=== PATIENT | female | born 2005 | race Hispanic/Latino ===

== ENCOUNTER 2024-09-06 02:41 | Emergency (ER) | payer SELFPAY ==
[2024-09-06 03:36] LABS: Absolute Eosinophils 0.1 K/uL (0-0.5); Absolute Lymphocytes (CBC) 2.8 K/uL (0.7-4.9); Absolute Monocytes 0.8 K/uL (0.1-1.3); Absolute Neutrophil 10.7 K/uL (1.8-8.0); Basophils % 0.2 % (0-1.3); Eosinophils % 0.8 % (0-4.4); Hematocrit 39.6 % (36.0-45.0); Hemoglobin 13.4 g/dL (12.0-15.0); Lymphocytes % 19.2 % (15.3-44.8); MCH 32.1 pg (27.0-35.0); MCHC 33.8 g/dL (32.0-36.0); MCV 94.8 fL (80-100); MPV 9.1 fL (7.6-11.3); Monocytes % 5.8 % (3.3-12.3); Platelets 241 thou/uL (152-406); RBC Red Blood Cell Count 4.17 M/uL (3.86-4.86); Red Cell Distribution Width 13.6 % (12.1-15.2)
[2024-09-06 03:55] LABS: Specific Gravity 1.017 (1.005-1.030); Sqamous Epithelial <5 /HPF (None Seen); Urine Bacteria 20-50 /HPF (<20); Urine Bilirubin NEGATIVE (Negative); Urine Blood 1+ (Negative); Urine Clarity Extremely Turbid (Clear); Urine Color Light-Yellow (Yellow); Urine Crystals Unidentified Few /HPF (None Seen); Urine Culture Reflex Order REFLEXED; Urine Glucose NEGATIVE (Negative); Urine Ketones NEGATIVE (Negative); Urine Microscopic Reflex YN ORDER UMIC; Urine Mucus Slight /HPF (None Seen); Urine Nitrite NEGATIVE (Negative); Urine Protein TRACE (Negative); Urine Urobilinogen Normal (Normal); Urine WBC >50 /HPF (<5); Urine WBC Clump Rare /HPF (None Seen); Urine pH 6.5 (5.0-7.0)
[2024-09-06 04:00] LABS: Anion Gap 10.6 mEq/L (5.0-15.0); Potassium 3.6 mEq/L (3.5-5.1)
--- NOTE | 2024-09-06 04:46 | RAD REPORT ---
EXAM DESCRIPTION: Transvaginal OB CLINICAL HISTORY: 19 years Female, bleeding COMPARISON: None. TECHNIQUE: Transvaginal images of the pelvis obtained FINDINGS: Uterus: Anteverted, measuring 8.7 x 5.3 x 6.6 cm. No myometrial mass. Gestational sac/Yolk sac/ pole: Single live intrauterine is identified with gestationa l sac containing a pole and small yolk sac. [place]-rump length of 0.7 cm, compatible with estimated gestational age of 6 weeks and 4 days. heart motion: 129 bpm Right ovary: Measures 3.1 x 2.7 x 2.8 cm. No suspicious sonographic abnormality. Left ovary: Not visualized. Adnexa: No additional abnormality. Free fluid: Trace free fluid. IMPRESSION: Single live intrauterine with estimated gestational age of 6 weeks and 4 days. Electronically signed by: Gwen Doll MD 09/06/2024 04:43 AM SAMPLE SEWER Due to temporary technical issues with the PACS/[employer] scribe reporting system, reports are being sign ed by the in-house radiologist without review as a courtesy to ensure prompt reporting the interpreting rad iologist is fully responsible for the content of the report. Transcribed Date/Time: 09/06/2024 4:46 AM
--- NOTE | 2024-09-06 04:50 | EDPHYS ---
Physician Documentation [facility] Name: Glenda Man Age: 19 yrs Sex: Female : 2005 Arrival Date: 09/06/2024 Time: 02:41 Bed 5 Private MD: ED Physician Sridhar Delatorre HPI: 09/06 03:07 This 19 yrs old Female presents to ER via Ambulatory with complaints of rt Abdominal Cramping, Vaginal Bleeding, 3 to 4 weeks preg. 03:07 Patient is a G1, P0 unsure how far along she is who presents to the ED with spotting rt after urinating today. Reports mild abdominal cramping and nausea but denies other acute complaints, symptoms are mild severity, no other aggravating alleviating factors.. 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 - Infectious Disease History:: Denies. - Social history:: Smoking status: Patient denies any tobacco usage or history of. - Family history:: not pertinent. ROS: 03:07 Constitutional: Negative for fever, chills, and weight loss, Cardiovascular: Negative rt for chest pain, palpitations, and edema, Respiratory: Negative for shortness of breath, cough, wheezing, and pleuritic chest pain, Abdomen/GI: Negative for abdominal pain, nausea, vomiting, diarrhea, and constipation, MS/Extremity: Negative for injury and deformity, Skin: Negative for injury, rash, and discoloration, Neuro: Negative for headache, weakness, numbness, tingling, and seizure, 03:07 : Positive for vaginal bleeding, Negative for urinary symptoms, Exam: 03:07 Constitutional: This is a well developed, well nourished patient who is awake, alert, rt and in no acute distress. Head/Face: Normocephalic, atraumatic. Chest/axilla: Normal chest wall appearance and motion. Nontender with no deformity. No lesions are appreciated. Cardiovascular: Regular rate and rhythm with a normal S1 and S2. No gallops, murmurs, or rubs. Normal PMI, no JVD. No pulse deficits. Respiratory: Lungs have equal breath sounds bilaterally, clear to auscultation and percussion. No rales, rhonchi or wheezes noted. No increased work of breathing, no retractions or nasal flaring. Abdomen/GI: Soft, non-tender, with normal bowel sounds. No distension or tympany. No guarding or rebound. No evidence of tenderness throughout. Skin: Warm, dry with normal turgor. Normal color with no rashes, no lesions, and no evidence of cellulitis. MS/ Extremity: Pulses equal, no cyanosis. Neurovascular intact. Full, normal range of motion. Neuro: Awake and alert, GCS 15, oriented to person, place, time, and situation. Cranial nerves II-XII grossly intact. Motor strength 5/5 in all extremities. Sensory grossly intact. Cerebellar exam normal. Normal gait. Vital Signs: 02:57 BP 134 / 82; Pulse 95; Resp 18; Temp 98; Pulse Ox 100% ; Weight 84.37 kg; Height 5 ft. vc1 2 in. ; Pain 0/10; 04:09 BP 120 / 54; Pulse 75; Resp 18; Pulse Ox 100% ; cp4 04:57 BP 116 / 85; Pulse 74; Resp 18; Pulse Ox 100% ; cp4 02:57 Body Mass Index 34.02 (84.37 kg, 157.48 cm) vc1 02:57 Pain Scale: Adult vc1 MDM: 02:57 Medical Screening Exam initiated rt 04:50 Differential diagnosis: Threatened AB, missed , ectopic . rt 04:51 Data reviewed: vital signs, nurses notes, lab test result(s), radiologic studies. rt Counseling: I had a detailed discussion with the patient and/or guardian regarding the historical points, exam findings, and any diagnostic results supporting the discharge/admit diagnosis, lab results, radiology results, the need for outpatient follow up, to return to the emergency department if symptoms worsen or persist or if there are any questions or concerns that arise at home. 09/06 03:02 Order name: Abo/rh Typing; Complete Time: 04:13 rt 09/06 03:02 Order name: Basic Metabolic Panel; Complete Time: 04:13 rt 09/06 03:02 Order name: CBC with Diff; Complete Time: 04:13 rt 09/06 03:02 Order name: Quantitative Hcg; Complete Time: 04:13 rt 09/06 03:02 Order name: Urinalysis w/ reflexes; Complete Time: 04:13 rt 09/06 03:58 Order name: Urine Culture EDMS 09/06 03:02 Order name: US Transvaginal Ob rt 09/06 03:02 Order name: IV Saline Lock; Complete Time: 03:14 rt 09/06 03:02 Order name: Labs collected and sent; Complete Time: 03:14 rt 09/06 03:02 Order name: NPO; Complete Time: 03:14 rt Administered Medications: No medications were administered Disposition Summary: 09/06/24 04:49 Discharge Ordered Notes: Location: Home rt Problem: new rt Symptoms: have improved rt Condition: Stable rt Diagnosis - Threatened rt - UTI/ Urinary tract infection, site not specified rt Followup: rt - With: Private Physician - When: 2 - 3 days - Reason: Discharge Instructions: - Discharge Summary Sheet rt - Urinary Tract Infection, Adult rt - Threatened Miscarriage, [id number] rt Forms: - Medication Reconciliation Form rt - Antibiotic Education rt - Prescription Opioid Use rt - Patient Portal Instructions rt - Leadership Thank You Letter rt Prescriptions: - cefpodoxime 200 mg Oral tablet - take 1 tablet ORAL route every 12 hours with food; 14 tablet; Refills: 0, rt Product Selection Permitted Signatures: Dispatcher [facility] EDEllen Rdz RN RN vc1 Sridhar Delatorre MD MD rt Corrections: (The following items were deleted from the chart) 03:03 03:02 ABO/RH TYPING+BB.LAB.BRZ ordered. EDMS EDMS 03:03 03:03 BASIC METABOLIC PANEL+C.LAB.BRZ ordered. EDMS EDMS 03:03 03:03 CBC+H.LAB.BRZ ordered. EDMS EDMS 03:03 03:03 QUANTITATIVE HCG+C.LAB.BRZ ordered. EDMS EDMS 03:03 03:03 Urinalysis+U.LAB.BRZ ordered. EDMS EDMS 03:03 03:03 Transvaginal Ob+US.RAD.BRZ ordered. EDMS EDMS
--- NOTE | 2024-09-06 04:50 | ER ---
Nurse's Notes [facility] Name: Glenda Man Age: 19 yrs Sex: Female : 2005 Arrival Date: 09/06/2024 Time: 02:41 Bed 5 Private MD: Diagnosis: Threatened ;UTI/ Urinary tract infection, site not specified Presentation: 09/06 02:57 Chief complaint: Patient states: just found out a couple of weeks ago, had vc1 some light bleeding while wiping tonight. Coronavirus screen: Client denies travel out of the [place] in the last 14 days. At this time, the client does not indicate any symptoms associated with coronavirus-19. Ebola Screen: Patient negative for fever greater than or equal to 101.5 degrees Fahrenheit, and additional compatible Ebola Virus Disease symptoms Patient denies exposure to infectious person. Patient denies travel to an Ebola-affected area in the 21 days before illness onset. No symptoms or risks identified at this time. Initial Sepsis Screen: Does the patient meet any 2 criteria? No. Patient's initial sepsis screen is negative. Does the patient have a suspected source of infection? No. Patient's initial sepsis screen is negative. Risk Assessment: Do you want to hurt yourself or someone else? Patient reports no desire to harm self or others. Onset of symptoms was September 06, 2024. Care prior to arrival: None. Activity prior to arrival: None. 02:57 Method Of Arrival: Ambulatory vc1 02:57 Acuity: VEE 4 vc1 Triage Assessment: 03:03 General: Appears in no apparent distress. comfortable, well groomed, well developed, vc1 well nourished, Behavior is calm, cooperative, appropriate for age. Pain: Denies pain. EENT: No deficits noted. No signs and/or symptoms were reported regarding the EENT system. Neuro: Level of Consciousness is awake, alert, obeys commands, Oriented to person, place, time, situation, Appropriate for age. Cardiovascular: Capillary refill < 3 seconds Patient's skin is warm and dry. Respiratory: Airway is patent Respiratory effort is even, unlabored, Respiratory pattern is regular, symmetrical. GI: Abdomen is round non-distended. : Reports vaginal bleeding that is spotty. Derm: Skin is intact, is healthy with good turgor, Skin is dry, Skin is normal. Musculoskeletal: Circulation, motion, and sensation intact. Range of motion: intact in all extremities. 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 - Infectious Disease History:: Denies. - Social history:: Smoking status: Patient denies any tobacco usage or history of. - Family history:: not pertinent. Screenin:02 [facility] ED Fall Risk Assessment (Adult) History of falling in the last 3 months, vc1 including since admission No falls in past 3 months (0 pts) Confusion or Disorientation No (0 pts) Intoxicated or Sedated No (0 pts) Impaired Gait No (0 pts) Mobility Assist Device Used No (0 pt) Altered Elimination No (0 pt) Score/Fall Risk Level 0 - 2 = Low Risk Oriented to surroundings, Maintained a safe environment, Educated pt \T\ family on fall prevention, incl call for assistance when getting out of bed. Abuse screen: Denies threats or abuse. Nutritional screening: No deficits noted. Tuberculosis screening: No symptoms or risk factors identified. Assessment: 03:14 General: Appears in no apparent distress. comfortable, Behavior is calm, cooperative, cp4 appropriate for age. Pain: Denies pain. Neuro: Level of Consciousness is awake, alert, obeys commands, Oriented to person, place, time, situation. Cardiovascular: Patient's skin is warm and dry. Respiratory: Airway is patent Respiratory effort is even, unlabored. GI: Bowel sounds present X 4 quads. Abd is soft and non tender X 4 quads. : Parent/caregiver report the patient having vaginal bleeding that is spotty. EENT: No signs and/or symptoms were reported regarding the EENT system. Derm: No signs and/or symptoms reported regarding the dermatologic system. Musculoskeletal: No signs and/or symptoms reported regarding the musculoskeletal system. Vital Signs: 02:57 BP 134 / 82; Pulse 95; Resp 18; Temp 98; Pulse Ox 100% ; Weight 84.37 kg; Height 5 ft. vc1 2 in. ; Pain 0/10; 04:09 BP 120 / 54; Pulse 75; Resp 18; Pulse Ox 100% ; cp4 04:57 BP 116 / 85; Pulse 74; Resp 18; Pulse Ox 100% ; cp4 02:57 Body Mass Index 34.02 (84.37 kg, 157.48 cm) vc1 02:57 Pain Scale: Adult vc1 ED Course: 02:44 Patient arrived in ED. gm2 02:48 Sridhar Delatorre MD is Attending Physician. rt 03:01 Triage completed. vc1 03:05 Arm band placed on right wrist. vc1 03:05 Patient has correct armband on for positive identification. Bed in low position. Call vc1 light in reach. Provided Education on: clean catch. Pulse ox on. NIBP on. 03:13 Kristina Alvarado is Primary Nurse. cp4 03:16 Inserted saline lock: 20 gauge in right antecubital area, using aseptic technique. mm11 Blood collected. Flushed with 10 mL NS. 03:17 Basic Metabolic Panel Sent. mm11 03:17 Abo/rh Typing Sent. mm11 03:17 CBC with Diff Sent. mm11 03:17 Urinalysis w/ reflexes Sent. mm11 03:19 Quantitative Hcg Sent. mm11 03:53 US Transvaginal Ob In Process Unspecified. EDMS 04:57 No provider procedures requiring assistance completed. intact, bleeding controlled, No cp4 redness/swelling at site. Pressure dressing applied. Administered Medications: No medications were administered Medication: 03:14 VIS not applicable for this client. cp4 Outcome: 04:49 Discharge ordered by . rt 04:57 Discharged to home ambulatory, cp4 04:57 Condition: stable 04:57 Discharge instructions given to patient, Instructed on discharge instructions, follow up and referral plans. medication usage, Demonstrated understanding of instructions, follow-up care, medications, Prescriptions given X 1, 04:58 Patient left the ED. cp4 Signatures: Dispatcher [employer] EDMS Ellen Churchill RN RN vc1 Sridhar Delatorre MD MD rt Kristina Alvarado cp4 Isela Bingham gm2 charbel colin mm11
[2024-09-06 05:31] VITALS: TEMP 98; O2SAT 100
[2024-09-06 05:34] VITALS: BP 116/85
== END 2024-09-06 04:58 | disposition home or self-care (01) ==
LOC: ER 02:41
DX: O20.0 Threatened abortion (principal); O23.41 Unspecified infection of urinary tract in pregnancy, first trimester; N39.0 Urinary tract infection, site not specified
CPT/HCPCS: 36415; 76817; 80048; 81001; 84702; 85025; 86900; 86901; 87077; 87086; 87088; 87186; 99284

== ENCOUNTER 2025-04-11 22:59 | Emergency (ER) | payer OTHER ==
--- OUTSIDE RECORDS SUMMARY | 2025-04-11 23:04 | XMS REPORT | Continuity of Care Document ---
Author Name Unknown Address [address] [facility] [place] [address] [facility] Address [address] [facility] [address] [place] [address] Care Team Providers Care Hourly Manager Name Role Phone Samuel Arambula Primary Care Physician [phone] KARMA GONZALEZ Attending Clinician Unavailable AKRMA GONZALEZ Attending Clinician Unavailable Karma Gonzalez MD Attending Clinician [phone] Doctor Unassigned, [place] Attending Clinician U navailable Lab, Ang - Db Attending Clinician Unavailable Akingiselle WHCNPAbiola Attending Clinician + ABIOLA GAONA Attending Clinician Unavail able Ultrasound, Ang-Mfm Attending Clinician Unavaila Missy Neely MD Attending Clinician MISSY MERAZ Attending Clinician Un available YO ZAPATA Attending Clinician Unav YO Iniguez Attending Clinician Ingridv Yo Iniguez MD Attending Clinician + Jonathon Jesus MD Attending Clinician Unavaila ble Raju_P Attending Clinician Unavailable Raju_P Admitting Clinician Unavailable Payers Payer Name Policy Type Policy Number Effective Date Expirati on Date Source [facility] [id number] 2024 00:00:00 [place] [id number] 2024 00:00:00 Problems Condition Name Condition Details Condition Category Status Onset Date Resolution Date Last Treatment Date Treating Clinician Comments Source Susceptibl e to varicella (non-immun e), currently Susceptibl e to varicella (non-immun e), currently Disease Active 10-15 00:00: 00 [facility] Supervisio n of high-risk Supervisio n of high-risk Disease Active 09-16 00:00: 00 [facility] Obesity in Obesity in Disease Active 09-16 00:00: 00 [facility] Juvenile osteochond rosis of lower extremity, 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, excluding foot Disease Active 12-05 00:00: 00 [facility] Allergies, Adverse Reactions, Alerts Allergy Name Allergy Type Status Severity Reaction(s) Onset Date Inactive Date Treating Clinician Comments Source NO KNOWN ALLERGIE S Drug Class Active [facility] Social History Social Habit Start Date Stop Date Quantity Comments Source ASSERTION 2024-07-31 00:00:00 [facility] Alcoholic beverage intake 2025-03-31 00:00:00 2025-03-31 00:00:00 Ex-drinker (finding) [facility] Tobacco use and exposure 2024-09-16 00:00:00 2024-09-16 00:00:00 Smokeless tobacco non-user [facility] History of Social function 2024-09-16 00:00:00 2024-09-16 00:00:00 [facility] Sex assigned at 2004 00:00:00 2005 00:00:00 [facility] Smoking Status Start Date Stop Date Source Never smoked tobacco [facility] Medications Ordered Medication Name Filled Medication Name Start Date Stop Date Current Medication? Ordering Clinician Indication Dosage Frequency Signature (SIG) Comments Components Source Iron Fum & P-FA-Vit B & C No.9 (INTEGRA PLUS) 125 mg iron- 1 mg Cap 6-05 00:00: 00 Yes [id number] 1{tbl} Take 1 tablet by mouth daily. [facility] PNV 67-iron ps-folate no.1-dha (VITAFOL ULTRA) 29 mg iron- 1 mg-200 mg Cap 10-14 00:00: 00 Yes [id number] 1{each} Take 1 Each by mouth daily. [facility] DIPHENHYDRA MINE HCL (BENADRYL ALLERGY ORAL) 09-16 08:55: 47 09-16 00:00 :00 No Take by mouth. [facility] acetaminoph en-codeine (TYLENOL W/CODEINE) 120-12 mg/5 mL elixir 11-14 00:00: 00 09-16 00:00 :00 No 4mL Take 4 mL by mouth every 6 (six) hours as needed for Pain. [facility] diazepam (VALIUM) 2 mg tablet 11-14 00:00: 00 09-16 00:00 :00 No 2mg Take 1 Tab by mouth 3 (three) times daily. [facility] Immunizations Ordered Immunization Name Filled Immunization Name Date Status Comments Source TDAP 2025-03-17 00:00:00 Completed SARS-COV-2 COVID-19 PFIZER VACCINE 2021-01-27 00:00:00 Completed [facility] Meningococcal Polysaccharide (groups A, C, Y and W-135) conjugate vaccine (MCV4P) 2020-10-12 00:00:00 Completed Influenza, split virus, trivalent, preservative (3+ Yrs) (Afluria) 2018-07-24 00:00:00 Completed Influenza, split virus, trivalent, preservative (3+ Yrs) (Afluria) 2016-05-19 00:00:00 Completed HPV 2015-09-03 00:00:00 Completed Influenza Virus Vaccine Quad Nasal (Flumist) 2015-06-27 00:00:00 Completed Meningococcal Polysaccharide (groups A, C, Y and W-135) conjugate vaccine (MCV4P) 2015-06-27 00:00:00 Completed TDAP 2015-06-27 00:00:00 Completed HPV 2014-06-05 00:00:00 Completed Hep B, Adol or Pedi Dosage 2011-05-08 00:00:00 Completed DTaP, Unspecified Formulation 2008-03-12 00:00:00 Completed MMR 2008-03-12 00:00:00 Completed IPV 2008-03-12 00:00:00 Completed Varicella (varivax)(chicken pox) 2008-03-12 00:00:00 Completed Influenza Virus Vaccine 2006-09-04 00:00:00 Completed Influenza, split virus, trivalent, PF (AFLURIA/FLUARIX/FLUL AVAL/FLUZONE) 2006-09-04 00:00:00 Completed HEPATITIS A 2006-09-04 00:00:00 Completed HEPATITIS A 2006-02-01 00:00:00 Completed DTaP, Unspecified Formulation 2005-07-16 00:00:00 Completed [facility] HIB 3 Dose Schedule 2005-07-16 00:00:00 Completed HIB 4 Dose Schedule 2005-07-16 00:00:00 Completed Pneumococcal 13 Conjugate, PCV13 (Prevnar 13) 2005-07-16 00:00:00 Completed Pneumococcal 7 Conjugate, PCV7 (Prevnar7) 2005-07-16 00:00:00 Completed MMR 2005-03-26 00:00:00 Completed IPV 2005-03-26 00:00:00 Completed Varicella (varivax)(chicken pox) 2005-03-26 00:00:00 Completed Influenza Virus Vaccine 2004 00:00:00 Completed Influenza, split virus, trivalent, PF (AFLURIA/FLUARIX/FLUL AVAL/FLUZONE) 2004 00:00:00 Completed DTaP, Unspecified Formulation 2004 00:00:00 Completed HIB 3 Dose Schedule 2004 00:00:00 Completed Pneumococcal 13 Conjugate, PCV13 (Prevnar 13) 2004 00:00:00 Completed Pneumococcal 7 Conjugate, PCV7 (Prevnar7) 2004 00:00:00 Completed DTaP, Unspecified Formulation 2004 00:00:00 Completed Hep B, Adol or Pedi Dosage 2004 00:00:00 Completed HIB 3 Dose Schedule 2004 00:00:00 Completed HIB 4 Dose Schedule 2004 00:00:00 Completed Pneumococcal 13 Conjugate, PCV13 (Prevnar 13) 2004 00:00:00 Completed Pneumococcal 7 Conjugate, PCV7 (Prevnar7) 2004 00:00:00 Completed IPV 2004 00:00:00 Completed DTaP, Unspecified Formulation 2004 00:00:00 Completed Hep B, Adol or Pedi Dosage 2004 00:00:00 Completed HIB 3 Dose Schedule 2004 00:00:00 Completed HIB 4 Dose Schedule 2004 00:00:00 Completed Pneumococcal 13 Conjugate, PCV13 (Prevnar 13) 2004 00:00:00 Completed Pneumococcal 7 Conjugate, PCV7 (Prevnar7) 2004 00:00:00 Completed IPV 2004 00:00:00 Completed Hep B, Adol or Pedi Dosage 2004 00:00:00 Completed Vital Signs Vital Name Observation Time Observation Value Comments S ource Systolic blood pressure 2025-04-07 20:34:00 110 mm[Hg] [facility] Diastolic blood pressure 2025-04-07 20:34:00 73 mm[Hg] [facility] Heart rate 2025-04-07 20:34:00 94 /min [facility] Respiratory rate 2025-04-07 20:34:00 18 /min [facility] Body height 2025-04-07 20:34:00 157.5 cm [facility] Body weight 2025-04-07 20:34:00 102.422 kg [facility] BMI 2025-04-07 20:34:00 41.30 kg/m2 [facility] Oxygen saturation in Arterial blood by Pulse oximetry 2025-04-07 20:34:00 98 /min [facility] Systolic blood pressure 2025-03-31 14:30:00 116 mm[Hg] [facility] Diastolic blood pressure 2025-03-31 14:30:00 79 mm[Hg] [facility] Heart rate 2025-03-31 14:30:00 113 /min [facility] Body temperature 2025-03-31 14:30:00 36.56 Emily [facility] Respiratory rate 2025-03-31 14:30:00 18 /min [facility] Body height 2025-03-31 14:30:00 157.5 cm [facility] Body weight 2025-03-31 14:30:00 99.973 kg [facility] BMI 2025-03-31 14:30:00 40.31 kg/m2 [facility] Oxygen saturation in Arterial blood by Pulse oximetry 2025-03-31 14:30:00 99 /min [facility] Systolic blood pressure 2025-03-17 21:47:00 112 mm[Hg] [facility] Diastolic blood pressure 2025-03-17 21:47:00 75 mm[Hg] [facility] Heart rate 2025-03-17 21:47:00 105 /min Un[facility] Respiratory rate 2025-03-17 21:47:00 18 /min [facility] Body height 2025-03-17 21:47:00 157.5 cm [facility] Body weight 2025-03-17 21:47:00 97.977 kg [facility] BMI 2025-03-17 21:47:00 39.51 kg/m2 [facility] Systolic blood pressure 2025-03-02 18:19:00 117 mm[Hg] [facility] Diastolic blood pressure 2025-03-02 18:19:00 78 mm[Hg] [facility] Heart rate 2025-03-02 18:19:00 101 /min Unive [facility] Body temperature 2025-03-02 18:19:00 36.72 Emily [facility] Respiratory rate 2025-03-02 18:19:00 18 /min [facility] Body height 2025-03-02 18:19:00 162.6 cm [facility] Body weight 2025-03-02 18:19:00 98.022 kg [facility] BMI 2025-03-02 18:19:00 37.09 kg/m2 [facility] Oxygen saturation in Arterial blood by Pulse oximetry 2025-03-02 18:19:00 98 /min [facility] Systolic blood pressure 2025-02-16 13:49:00 118 mm[Hg] [facility] Diastolic blood pressure 2025-02-16 13:49:00 78 mm[Hg] [facility] Heart rate 2025-02-16 13:49:00 101 /min Unive [facility] Body temperature 2025-02-16 13:49:00 36.61 Emily [facility] Respiratory rate 2025-02-16 13:49:00 18 /min [facility] Body height 2025-02-16 13:49:00 162.6 cm [facility] Body weight 2025-02-16 13:49:00 96.616 kg [facility] BMI 2025-02-16 13:49:00 36.56 kg/m2 [facility] Systolic blood pressure 2025-02-02 15:43:00 117 mm[Hg] [facility] Diastolic blood pressure 2025-02-02 15:43:00 74 mm[Hg] [facility] Heart rate 2025-02-02 15:43:00 98 /min [facility] Body temperature 2025-02-02 15:43:00 36.72 Emily [facility] Respiratory rate 2025-02-02 15:43:00 18 /min [facility] Body height 2025-02-02 15:43:00 162.6 cm [facility] Body weight 2025-02-02 15:43:00 96.435 kg [facility] BMI 2025-02-02 15:43:00 36.49 kg/m2 [facility] Oxygen saturation in Arterial blood by Pulse oximetry 2025-02-02 15:43:00 98 /min [facility] Systolic blood pressure 2025-01-20 12:10:00 104 mm[Hg] [facility] Diastolic blood pressure 2025-01-20 12:10:00 71 mm[Hg] [facility] Heart rate 2025-01-20 12:10:00 100 /min [facility] 2025-01-20 12:10:00 36.33 Emily [facility] Respiratory rate 2025-01-20 12:10:00 18 /min [facility] Body height 2025-01-20 12:10:00 157.5 cm [facility] weight 2025-01-20 12:10:00 96.361 kg [facility] BMI 2025-01-20 12:10:00 38.86 kg/m2 [facility] Systolic blood pressure 2025-01-06 15:53:00 118 mm[Hg] [facility] Diastolic blood pressure 2025-01-06 15:53:00 73 mm[Hg] [facility] Heart rate 2025-01-06 15:53:00 93 /min [facility] Body temperature 2025-01-06 15:53:00 36.44 Emily [facility] Respiratory rate 2025-01-06 15:53:00 18 /min [facility] Body height 2025-01-06 15:53:00 157.5 cm [facility] Body weight 2025-01-06 15:53:00 93.157 kg [facility] BMI 2025-01-06 15:53:00 37.56 kg/m2 [facility] Systolic blood pressure 2024-12-09 15:33:00 137 mm[Hg] [facility] Diastolic blood pressure 2024-12-09 15:33:00 77 mm[Hg] [facility] Heart rate 2024-12-09 15:33:00 125 /min [facility] Body temperature 2024-12-09 15:33:00 35.61 Emily [facility] Respiratory rate 2024-12-09 15:33:00 18 /min [facility] Body height 2024-12-09 15:33:00 157.5 cm [facility] Body weight 2024-12-09 15:33:00 89.812 kg [facility] BMI 2024-12-09 15:33:00 36.21 kg/m2 [facility] 2024-11-11 15:10:00 93 /min [facility] Body temperature 2024-11-11 15:10:00 36.61 Emily [facility] Respiratory rate 2024-11-11 15:10:00 18 /min [facility] Body height 2024-11-11 15:10:00 157.5 cm [facility] Body weight 2024-11-11 15:10:00 86.75 kg [facility] BMI 2024-11-11 15:10:00 34.98 kg/m2 [facility] Systolic blood pressure 2024-11-11 15:10:00 129 mm[Hg] [facility] Diastolic blood pressure 2024-11-11 15:10:00 71 mm[Hg] [facility] Systolic blood pressure 2024-10-14 15:18:00 127 mm[Hg] [facility] Diastolic blood pressure 2024-10-14 15:18:00 71 mm[Hg] [facility] Heart rate 2024-10-14 15:18:00 85 /min Un[facility] Body temperature 2024-10-14 15:18:00 36.67 Emily [facility] Respiratory rate 2024-10-14 15:18:00 17 /min [facility] Body height 2024-10-14 15:18:00 157.5 cm [facility] Body weight 2024-10-14 15:18:00 83.915 kg [facility] BMI 2024-10-14 15:18:00 33.84 kg/m2 [facility] Systolic blood pressure 2024-09-16 14:41:00 121 mm[Hg] [facility] Diastolic blood pressure 2024-09-16 14:41:00 73 mm[Hg] [facility] Heart rate 2024-09-16 14:41:00 86 /min Un[facility] Body temperature 2024-09-16 14:41:00 36.22 Emily [facility] Respiratory rate 2024-09-16 14:41:00 15 /min [facility] Body height 2024-09-16 14:41:00 157.5 cm [facility] Body weight 2024-09-16 14:41:00 84.959 kg [facility] BMI 2024-09-16 14:41:00 34.26 kg/m2 [facility] Procedures Procedure Date / Time Performed Performing Clinician Source POCT URINALYSIS W/O SPECIFIC GRAVITY 2025-04-07 20:36:00 Adum, Karma Fallon [facility] >14 WEEKS US LIMITED 2025-04-01 00:35:23 Adum, Karma Fallon [facility] DSU PRE-OP 2025-03-31 20:38:48 Doctor Unass igned, [place] [facility] POCT URINALYSIS W/O SPECIFIC GRAVITY 2025-03-31 14:32:00 Adum, Karma Fallon [facility] TDAP VACCINE, >11 YRS, IM 2025-03-17 22:02:46 Adum, Karma Fallon [facility] POCT URINALYSIS W/O SPECIFIC GRAVITY 2025-03-17 00:00:00 Adum, Karma Fallon [facility] POCT URINALYSIS W/O SPECIFIC GRAVITY 2025-03-02 18:21:00 Adum, Karma Fallon [facility] POCT URINALYSIS W/O SPECIFIC GRAVITY 2025-02-16 00:00:00 Adum, Karma Fallon [facility] POCT URINALYSIS W/O SPECIFIC GRAVITY 2025-02-02 15:45:00 Adum, Karma Fallon [facility] GLUCOSE 1 HOUR POST PRANDIAL 2025-01-20 13:11:00 Abiola Gaona [facility] CBC WITH DIFF 2025-01-20 13:11:00 Abiola Gaona [facility] POCT URINALYSIS 2025-01-20 00:00:00 Abiola Gaona [facility] SECOND AND THIRD TRIMESTER ULTRASOUND 2025-01-19 14:17:00 Abiola Gaona [facility] POCT URINALYSIS 2025-01-06 00:00:00 Abiola Gaona [facility] SECOND AND THIRD TRIMESTER ULTRASOUND 2024-12-15 16:59:00 Abiola Gaona [facility] POCT URINALYSIS 2024-12-09 15:35:00 Abiola Gaona [facility] POCT URINALYSIS 2024-11-11 00:00:00 Abiola Gaona [facility] FIRST TRIMESTER ULTRASOUND 2024-10-16 22:27:00 Abiola Gaona [facility] VZV ANTIBODY SCREEN 2024-10-14 16:00:00 Lan Gaona [facility] POCT URINALYSIS 2024-10-14 00:00:00 Abiola Gaona [facility] CBC WITH DIFF 2024-09-16 15:39:00 Abiola Gaona [facility] GLYCOSYLATED HEMOGLOBIN (A1C) 2024-09-16 15:39:00 Abiola Gaona [facility] RUBELLA SCREEN IGG 2024-09-16 15:39:00 Raymond Gaona [facility] HEPATITIS B SURFACE ANTIGEN 2024-09-16 15:39:00 Abiola Gaona [facility] HCV ANTIBODY 2024-09-16 15:39:00 Abiola Gaona [facility] HB ABO GROUPING 2024-09-16 15:39:00 Abiola Gaona [facility] HIV 1/2 AG-AB WITH REFLEX 2024-09-16 15:39:00 Abiola Gaona [facility] SYPHILIS IGG/IGM 2024-09-16 15:39:00 Doug Gaona [facility] POCT TEST 2024-09-16 14:43:00 Lan Gaona [facility] POCT URINALYSIS W/O SPECIFIC GRAVITY 2024-09-16 14:43:00 Abiola Gaona [facility] TIBIA-FIBULA, 2 VIEWS 2012-11-11 19:07:00 Yadiel Jesus on A [facility] Encounters Start Date/Time End Date/Time Encounter Type Admission Type Attending [facility] Care Facility Care Department Encounter ID Source 2025-04-07 16:00:00 2025-04-07 16:09:52 Routine Visit R Karma Gonzalez [facility] 1.20.114 350.1.13.10 4.2.7.2.686 [id number] [facility] 2025-03-31 00:00:00 2025-04-01 02:03:47 Orders Only Doctor Unassigned, [place] Doctor Unassigned, [place] [facility] 1.20.114 350.1.13.10 4.2.7.2.686 [id number] [facility] 2025-03-31 11:00:00 2025-03-31 11:15:00 Director Field Services Visit R Arcenio, Ang - Karma Low, Ang - Chato [facility] 1.20.114 350.1.13.10 4.2.7.2.686 [id number] [facility] 2025-03-31 09:30:00 2025-03-31 10:13:41 Routine Visit R KARMA GONZALEZ [facility] 1.20.114 350.1.13.10 4.2.7.2.686 [id number] [facility] 2025-03-18 00:00:00 2025-03-18 15:02:15 Abstract Abiola Gaona [facility] [employer] 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2.7.2.686 [id number] [facility] 2025-02-17 13:30:00 2025-02-17 13:30:00 Director Field Services Visit R Arcenio, Ang - Chato Gonzalez Karma Vasyl Rg, Ang - Chato [facility] 1.0.114 350.1.13.10 4.2.7.2.686 [id number] [facility] 2025-02-16 08:00:00 2025-02-16 09:00:07 Routine Visit Karma Ann [facility] 1.2840.114 350.1.13.10 4.2.7.2.686 [id number] [facility] 2025-02-03 13:30:00 2025-02-03 13:30:00 Outpatient R ABIOLA GAONA [facility] [id number] [facility] 2025-02-02 10:00:00 2025-02-02 11:14:28 Initial Visit Belle PedersonjoonKarma [facility] 1.2840.114 350.1.13.10 4.2.7.2.686 [id number] [facility] 2025-01-21 00:00:00 2025-01-21 13:18:01 Telephone Abiola Gaona [facility] [employer] FIN[employer]ER [facility] MATERNAL & CHILD [facility] 1.2.840.114 350.1.13.10 4.2.7.2.686 [id number] [facility] 2025-01-20 00:00:00 2025-01-20 15:50:39 Abstract BennieAbiola desai Renetta [facility] [employer] FIN[employer]ER [facility] & CHILD [facility] 1.2.840.114 350.1.13.10 4.2.7.2.686 [id number] [facility] 2025-01-20 07:00:00 2025-01-20 08:12:07 Routine Visit R Abiola Gaona [facility] [employer] FIN[facility] CHILD [facility] 1.2.840.114 350.1.13.10 4.2.7.2.686 [id number] [facility] 2025-01-19 08:30:00 2025-01-19 09:31:58 Director Field Services Visit P Ultrasound, Missy Murray [facility] [employer] FIN[employer]ER [facility] & CHILD [facility] 1.2.840.114 350.1.13.10 4.2.7.2.686 [id number] [facility] 2025-01-06 11:00:00 2025-01-06 11:31:02 Routine Visit R BennieGarth desaijosue Jackson [facility] [employer] FINISHER [facility] & CHILD [facility] 1.2.840.114 350.1.13.10 4.2.7.2.686 [id number] [facility] 2024-12-16 00:00:00 2024-12-16 07:57:42 Abstract BennieloydaissaRaymondAbiola C [facility] [employer] FIN[employer]ER [facility] CHILD [facility] 1.2.840.114 350.1.13.10 4.2.7.2.686 [id number] [facility] 2024-12-15 10:45:00 2024-12-15 12:00:30 Outpatient P SVETLANA FERRARO NallelyMISSY [facility] [id number] [facility] 2024-12-15 10:45:00 2024-12-15 12:00:30 Director Field Services Visit Ultrasound, [facility] Svetlana Karyn nallelyMissy [facility] [employer] FIN[employer]ER [facility] & CHILD [facility] 1..840.114 350.1.13.10 4.2.7.2.686 [id number] [facility] 2024-12-09 10:15:00 2024-12-09 10:56:49 Outpatient R ABIOLA GAONA [facility] [id number] [facility] 2024-12-09 10:15:00 2024-12-09 10:56:49 Routine Visit Abiola Gaona [facility] [employer] FIN[employer]ER [facility] & CHILD [facility] 1.840.114 350.1.13.10 4.2.7.2.686 [id number] [facility] 2024-11-11 10:15:00 2024-11-11 10:50:18 Outpatient R ABIOLA GAONA [facility] [id number] [facility] 2024-11-11 10:15:00 2024-11-11 10:50:18 Routine Visit Abiola Gaona [facility] [employer] 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 [facility] & CHILD [facility] 1..840.114 350.1.13.10 4.2.7.2.686 [id number] [facility] [facility] 2024-10-21 00:00:00 2024-10-21 13:58:13 Abstract Abiola Gaona [facility] [employer] FINISHER [facility] 1..840.114 [id number] [facility] 2024-10-16 15:30:00 2024-10-16 16:25:45 Outpatient P YO ZAPATA CHASEY [facility] [id number] [facility] 2024-10-16 15:30:00 2024-10-16 16:25:45 Director Field Services Visit Ultrasound, Timmy Yo Zapata Ikuvbonigijosh [facility] [employer] [facility] [id number] [facility] 2024-10-14 09:30:00 2024-10-14 10:05:00 Outpatient R ABIOLA GAONA [facility] [id number] [facility] 2024-10-14 09:30:00 2024-10-14 10:05:00 Routine Visit Abiola Gaona [facility] [employer] [facility] 1..840.114 [id number] [facility] 2012-11-11 00:00:00 2024-10-03 04:48:38 Orders Only Jonathon Jesus [facility] [id number] [facility] 2024-09-16 08:30:00 2024-09-16 11:51:34 Outpatient R ABIOLA GAONA [facility] [id number] [facility] 2024-09-16 08:30:00 2024-09-16 11:51:34 Initial Visit Abiola Gaona [facility] [employer] FIN[employer] [facility] [id number] [facility] Results Test Description Test Time Test Comments Results Result Co mments Source [id number] 20:38:48Ordered by an unspecified provider.[facility] w/o Specific [id number] 14:32:00* Test Item Value Reference Range Interpretation Comme nts POCT PH U (test code = 3254) na 5-8 POCT U LEUK EST (test code = 3263) na Negative - Negative POCT U NIT (test code = 3262) na Negative - Negati ve POCT U PROT (test code = 3259) negative Negative - Negat angela POCT U GLU (test code = 3256) 100 Negative - Negati ve POCT U KETONE (test code = 3258) na Negative - Neg ative POCT U BLD (test code = 3257) na Negative - Negati ve [facility] Urinalysis w/o Specific [id number] 21:51:00* Test Item Value Reference Range Interpretation Comme nts POCT PH U (test code = 3254) N/A 5-8 POCT U LEUK EST (test code = 3263) N/A Negative - Negative POCT U NIT (test code = 3262) N/A Negative - Negati ve POCT U PROT (test code = 3259) Negative Negative - Negat angela POCT U GLU (test code = 3256) Negative Negative - Negati ve POCT U KETONE (test code = 3258) N/A Negative - Neg ative POCT U BLD (test code = 3257) N/A Negative - Negati ve [facility] Urinalysis w/o Specific [id number] 18:21:00* Test Item Value Reference Range Interpretation Comme nts POCT PH U (test code = 3254) na 5-8 POCT U LEUK EST (test code = 3263) na Negative - Negative POCT U NIT (test code = 3262) na Negative - Negati ve POCT U PROT (test code = 3259) negative Negative - Negat angela POCT U GLU (test code = 3256) negative Negative - Negati ve POCT U KETONE (test code = 3258) na Negative - Neg ative POCT U BLD (test code = 3257) na Negative - Negati ve [facility] Urinalysis w/o Specific [id number] 13:51:00* Test Item Value Reference Range Interpretation Comme nts POCT PH U (test code = 3254) n/a 5-8 POCT U LEUK EST (test code = 3263) n/a Negative - N egative POCT U NIT (test code = 3262) n/a Negative - Negati ve POCT U PROT (test code = 3259) neg Negative - Negat angela POCT U GLU (test code = 3256) neg Negative - Negati ve POCT U KETONE (test code = 3258) n./a Negative - Neg ative POCT U BLD (test code = 3257) n/a Negative - Negati ve [facility] Urinalysis w/o Specific [id number] 15:45:00* Test Item Value Reference Range Interpretation Comme nts POCT PH U (test code = 3254) na 5-8 POCT U LEUK EST (test code = 3263) na Negative - Negative POCT U NIT (test code = 3262) na Negative - Negati ve POCT U PROT (test code = 3259) negative Negative - Negat angela POCT U GLU (test code = 3256) negative Negative - Negati ve POCT U KETONE (test code = 3258) na Negative - Neg ative POCT U BLD (test code = 3257) na Negative - Negati ve [facility] URINALYSIS W SPECIFIC [id number] 12:49:00* Test Item Value Reference Range Interpretation Comme nts POCT U SP GRAV (test code = 3255) . 1.005-1.025 POCT PH U (test code = 3254) . 5-8 POCT U LEUK EST (test code = 3263) . Negative - N egative POCT U NIT (test code = 3262) . Negative - Negati ve POCT U PROT (test code = 3259) trace Negative - Negat angela POCT U GLU (test code = 3256) 100 Negative - Negati ve POCT U KETONE (test code = 3258) . Negative - Neg ative POCT U UROBILI (test code = 3260) . 0.2-1 POCT U BILI (test code = 3261) . Negative - Negat angela POCT U BLD (test code = 3257) . Negative - Negati ve POCT U COLOR (test code = 3266) . POCT U APPEAR (test code = 3267) . [facility] URINALYSIS W SPECIFIC [id number] 15:46:00* Test Item Value Reference Range Interpretation Comme nts POCT U SP GRAV (test code = 3255) . 1.005-1.025 POCT PH U (test code = 3254) . 5-8 POCT U LEUK EST (test code = 3263) . Negative - N egative POCT U NIT (test code = 3262) . Negative - Negati ve POCT U PROT (test code = 3259) trace Negative - Negat angela POCT U GLU (test code = 3256) nml Negative - Negati ve POCT U KETONE (test code = 3258) . Negative - Neg ative POCT U UROBILI (test code = 3260) . 0.2-1 POCT U BILI (test code = 3261) . Negative - Negat angela POCT U BLD (test code = 3257) . Negative - Negati ve POCT U COLOR (test code = 3266) . POCT U APPEAR (test code = 3267) .. [facility] URINALYSIS W SPECIFIC [id number] 15:35:00* Test Item Value Reference Range Interpretation Comme nts POCT U SP GRAV (test code = 3255) . 1.005-1.025 POCT PH U (test code = 3254) . 5-8 POCT U LEUK EST (test code = 3263) . Negative - N egative POCT U NIT (test code = 3262) . Negative - Negati ve POCT U PROT (test code = 3259) trace Negative - Negat angela POCT U GLU (test code = 3256) neg Negative - Negati ve POCT U KETONE (test code = 3258) . Negative - Neg ative POCT U UROBILI (test code = 3260) . 0.2-1 POCT U BILI (test code = 3261) . Negative - Negat angela POCT U BLD (test code = 3257) . Negative - Negati ve POCT U COLOR (test code = 3266) . POCT U APPEAR (test code = 3267) . [facility] URINALYSIS W SPECIFIC [id number] 16:05:00* Test Item Value Reference Range Interpretation Comme nts POCT U SP GRAV (test code = 3255) . 1.005-1.025 POCT PH U (test code = 3254) . 5-8 POCT U LEUK EST (test code = 3263) . Negative - N egative POCT U NIT (test code = 3262) . Negative - Negati ve POCT U PROT (test code = 3259) trace Negative - Negat angela POCT U GLU (test code = 3256) normal Negative - Negati ve POCT U KETONE (test code = 3258) . Negative - Neg ative POCT U UROBILI (test code = 3260) . 0.2-1 POCT U BILI (test code = 3261) . Negative - Negat angela POCT U BLD (test code = 3257) . Negative - Negati ve POCT U COLOR (test code = 3266) . POCT U APPEAR (test code = 3267) . [facility] URINALYSIS W SPECIFIC [id number] 15:18:00* Test Item Value Reference Range Interpretation Comme nts POCT U SP GRAV (test code = 3255) . 1.005-1.025 POCT PH U (test code = 3254) . 5-8 POCT U LEUK EST (test code = 3263) . Negative - N egative POCT U NIT (test code = 3262) . Negative - Negati ve POCT U PROT (test code = 3259) trace Negative - Negat angela POCT U GLU (test code = 3256) normal Negative - Negati ve POCT U KETONE (test code = 3258) . Negative - Neg ative POCT U UROBILI (test code = 3260) . 0.2-1 POCT U BILI (test code = 3261) . Negative - Negat angela POCT U BLD (test code = 3257) . Negative - Negati ve POCT U COLOR (test code = 3266) . POCT U APPEAR (test code = 3267) . [facility] Urinalysis w/o Specific [id number] 14:43:00* Test Item Value Reference Range Interpretation Comme nts POCT PH U (test code = 3254) 5 mg/dl 5-8 POCT U LEUK EST (test code = 3263) 1+ Negative - Negative POCT U NIT (test code = 3262) neg Negative - Negati ve POCT U PROT (test code = 3259) trace Negative - Negat angela POCT U GLU (test code = 3256) neg Negative - Negati ve POCT U KETONE (test code = 3258) neg Negative - Neg ative POCT U BLD (test code = 3257) 50 Negative - Negati ve [facility] [id number] 14:43:00* Test Item Value Reference Range Interpretation Comme nts POCT PREG (test code = 1605) Positive On board controls acceptable with C Line (test code = 3574) Yes POCT PREG LOT # (test code = 3575) POCT PREG TEST DATE ( test code = 3576) [facility] 2 [id number] 22:08:00 *.*.*.*.*.*.*.*.*.*.*.*.*.*FINAL*.*.*.*.*.*.*.*.*.*.*.*.*.*.*HISTORY: 7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 Gross anatomic alignment is achieved. Changes of prior removal of a metallic sideplate and multiple screws along theright proximal tibial lateral cortex are again noted. No fracture or dislocation is identified. The soft tissues are grosslyunremarkable. LEFT TIBIA-FIBULA, 2 VIEWS: Changesof prior osteotomies are again noted in the proximal right tibia andfibula, with mild persistent deformity of the medial proximal tibialmetaphysis/medial tibial plateau. Gross anatomic alignment is achieved. A metallic sideplate and multiple screws along the right proximal tibiallateral cortex are again noted. No fracture or dislocation is identified. The soft tissues are grosslyunremarkable. KAREN RAYMOND MD ?Personally interpreted by: CARLOS BONE MD /Signed/ CARLOS BONE MDUnCHRISTUS [facility] Notes Date/Time Note Provider Source 2025-04-07 16:00:00 Age: [age] year old GA: 37w5d 1. Supervision of high risk in third trimester (Primary) 2. 37 weeks gestation of - Wants elective IOL Will schedule on 04/16 -Continue with kick count monitoring daily -Labor precautions given as follows: 1. Go to Labor and Delivery when your contractions are 5-7 minutes apart and you have been able to time them for an hour. If you live more than 30 minutes from the hospital, then go when they are 10 minutes apart and you have been able to time them for an hour. 2. BUT, there are 4 reasons to go to Labor and Delivery REGARDLESS of what else is happening, whether you are bernard or not: 1. If your water breaks - - - it may be a gush or a constant trickle. If you are not sure, always come in to be checked. 2. Bleeding like your period. 3. If your baby's movements are less than 10 in an hour. If you are concerned this might be the case, drink a tall glass of cold fluids, lay down on your side on the couch or your bed and see how long it takes to note 10 movements - if less than 10, this needs to be evaluated immediately. 4. Contractions or Pain that is continuous. Normal labor contractions last only 45 seconds - 1 minute. - POCT Urinalysis w/o Specific [place] 3. Anemia of mother in , antepartum - Continue medication/Iron supplements as prescribed 4. Obesity in - Stable 5. Positive GBS test - Treat intrapartum ANNETTA in 1 week or PRN Future Appointments In 1 week Karma Gonzalez MD [facility]'s [facility], [place], [facility] Specialt In 1 week ADC INDUCTION [facility] L&D [facility]uled [facility] #[id number] 2025-03-31 11:00:00 Images from the original note were not included. Venipuncture collection performed by clean technique on the left anticubitus. Total of 1 attempts were made. Slight pressure and a bandage/dressing were applied to the site(s). The patient experienced no complications. The following specimens were processed according to instructions and sent to [facility] laboratories per lab order on 03/31/2025 : LT BLUE SST RED LAV 1 PPT DK GREEN (LiHep) DK GREEN (SodH) ARREAGA DK BLUE (K2) DK BLUE (S) ACD Blood Culture NIPT/NTD [facility] 2025-03-31 09:30:00 Age: [age] year old GA: 36w5d 1. Supervision of high risk in third trimester 2. 36 weeks gestation of (Primary) -Continue with kick count monitoring daily -Labor precautions given as follows: 1. Go to Labor and Delivery when your contractions are 5-7 minutes apart and you have been able to time them for an hour. If you live more than 30 minutes from the hospital, then go when they are 10 minutes apart and you have been able to time them for an hour. 2. BUT, there are 4 reasons to go to Labor and Delivery REGARDLESS of what else is happening, whether you are bernard or not: 1. If your water breaks - - - it may be a gush or a constant trickle. If you are not sure, always come in to be checked. 2. Bleeding like your period. 3. If your baby's movements are less than 10 in an hour. If you are concerned this might be the case, drink a tall glass of cold fluids, lay down on your side on the couch or your bed and see how long it takes to note 10 movements - if less than 10, this needs to be evaluated immediately. 4. Contractions or Pain that is continuous. Normal labor contractions last only 45 seconds - 1 minute. - POCT Urinalysis w/o Specific [place] - Group B Streptococcus By PCR - Cbc with Diff; Future - Gc & Chlamydia Amplified Assay 3. Obesity in Weight stable 4. Anemia of mother in , antepartum - Continue Iron supplements as prescribed Repeat CBC 5. Unstable lie, antepartum, single or unspecified fetus - Cephalic on BSUS ANNETTA in 1 week or PRN Future Appointments In 1 week Karma Gonzalez MD [facility] Special Karma Gonzalez MD Health 2025-03-17 16:15:00 Age: [age] year old GA: 34w5d 1. Supervision of high risk in third trimester (Primary) PTL precautions and FKC's reviewed with patient Monitor for vaginal bleeding, loss of fluid, and/or contractions - Monitor for symptoms of preeclampsia (headache, visual disturbances, epigastric (under right ribs) pain, and increased blood pressure - If there is a perceived decrease in movement, monitor kick counts. Drink glass of water or juice and rest on left side for approximately two hours. If you feel 10 kicks (movements) over a period of two hours, this is normal. If you do not feel the fetus moving, present to OB clinic or antepartum unit at the [facility] 2. Obesity in Stable weigh gain 3. Anemia of mother in , antepartum - Continue supplements as prescribed 4. 34 weeks gestation of - POCT Urinalysis w/o Specific [place] - TDAP VACCINE, >7 YRS, IM 5. Need for Tdap vaccination - TDAP VACCINE, >7 YRS, IM ANNETTA in 2 weeks or PRN Future Appointments In 2 weeks Karma Gonzalez MD [facility] Special Karma Gonzalez MD Health 2025-03-02 13:15:00 Age: [age] year old GA: 32w4d 1. Supervision of high risk in third trimester (Primary) 2. 32 weeks gestation of - No concerns PTL precautions and FKC's reviewed with patient Monitor for vaginal bleeding, loss of fluid, and/or contractions - Monitor for symptoms of preeclampsia (headache, visual disturbances, epigastric (under right ribs) pain, and increased blood pressure - If there is a perceived decrease in movement, monitor kick counts. Drink glass of water or juice and rest on left side for approximately two hours. If you feel 10 kicks (movements) over a period of two hours, this is normal. If you do not feel the fetus moving, present to OB clinic or antepartum unit at the [facility] - POCT Urinalysis w/o Specific [place] 3. Obesity in - Stable weigh gain 4. Anemia of mother in , antepartum - Iron supplements ANNETTA in 2 weeks or PRN Future Appointments In 2 weeks Karma Gonzalez MD [facility]'s [facility] Karma Gonzalez MD [facility] 2025-02-17 13:30:00 Images from the original note were not included. Venipuncture collection performed by clean technique on the left anticubitus. Total of 1 attempts were made. Slight pressure and a bandage/dressing were applied to the site(s). The patient experienced no complications. The following specimens were processed according to instructions and sent to [facility] laboratories per lab order on 02/17/2025 : Patient states she only sees Dr Gonzalez now. LT BLUE SST 1 RED 1 LAV 1 PPT DK GREEN (LiHep) DK GREEN (SodH) ARREAGA DK BLUE (K2) DK BLUE (S) ACD Blood Culture NIPT/NTD Patient has been identified by and name and was provided with cup, antiseptic towelette, and clean catch instructions. 1 urine specimen(s) sent. Unpreserved 1 Urine Culture Aptima tube Other urine [facility] 2025-02-16 08:00:00 Age: [age] year old GA: 30w4d 1. Supervision of high risk in third trimester (Primary) 2. 30 weeks gestation of - No concern - PTL precautions and FKC's reviewed with patient Monitor for vaginal bleeding, loss of fluid, and/or contractions - Monitor for symptoms of preeclampsia (headache, visual disturbances, epigastric (under right ribs) pain, and increased blood pressure - If there is a perceived decrease in movement, monitor kick counts. Drink glass of water or juice and rest on left side for approximately two hours. If you feel 10 kicks (movements) over a period of two hours, this is normal. If you do not feel the fetus moving, present to OB clinic or antepartum unit at the [facility] - POCT Urinalysis w/o Specific [place] 3. Obesity in - Sable weight gain 4. Anemia of mother in , antepartum - Due follow up CBC. Advised to get done before next visit ANNETTA in 2 weeks or PRN Future Appointments Tomorrow Lab, [place] [facility] Clinical Laboratory, [place] ADRIAN HOOKER BLE In 2 weeks Karma Gonzalez MD [facility]'s [facility], [facility] Karma Gonzalez MD [facility] 2025-02-02 10:00:00 Images from the original note were not included. Age: [age] year old GA: 28w4d Expand All Collapse All Chief complaint: Chief Complaint Patient presents with New OB Visit Consent to use DANILO co-sap bw architect obtained HPI History of Present Illness Katherine Vazquez is a 19 year old [id number] at 28 weeks 4 days presents for her initial OB visit at our clinic,a transfer of care from the [facility]. She is accompanied by her partner She reports a healthy with normal movements and has no concerns today. She has not yet selected a audit practice intern for post-delivery care. She plans to use oral contraceptives for control following delivery and intends to both breastfeed and bottle-feed her baby. 1.Supervision of high risk in third trimester (primary encounter diagnosis) 2. 28 weeks gestation of - Reviewed her PNL results with her _ Glucose levels, although within the normal range, are borderline at 134 - advised a balanced diet, rich in vegetables and lean meats, while limiting intake of potatoes and rice. - 3rd trimester teaching done- reviewed S/S of PTL (contractions, leakage of fluid and Vaginal bleeding) and also FKC. - Also dicussed B-H, pelvic and lower back pains- expectations and differences with S/S of PTL She plans to bottle and breast feed BC options reviewed- she is currently unsure of her choice. Written information provided - Regular physical activity, including walking, is recommended. - Monitor movements, aiming for at least 10 movements within a 2-hour period. - Report any persistent spotting or bleeding immediately, either to this office or directly to the hospital. - Seek immediate medical attention at the hospital in case of fluid leakage, especially if it appears bloody or green. - [employer] contractions discussed as normal; any painful contractions should prompt an evaluation. - Take Tylenol for headaches; if these persist, recur, or are accompanied by visual disturbances or general malaise, contact this office or visit the hospital if outside clinic hours. - A list of [facility] pediatricians will be provided. - Boyfriend reports that they have chosen audit practice intern, he will get the name from his mother and let us at the next visit. - Conduct blood work, including HIV screening, syphilis testing, before the next visit. 2.Obesity in Reviewed the risks associated obesity in - GDM, GTHN, Macrosomia, IUGR, labor dsytocia which could lead to with increased risk of wound breakdown. Discussed appropriate weight gain for her BMI, healthy eating with regular moderate intensity exercise Plan: POCT Urinalysis w/o Specific [place], Workup, Blood Bank, Urine Drug (Immunoassay) - Comprehensive Drug Screen 3.Anemia of mother in , antepartum Continue Iron supplements 4. Beatriz's disease Bilateral beatriz's disease diagnosed at 7 years, s/p surgery in 2013 No concerns today Follow-up Follow up in 2 weeks. Future Appointments In 2 weeks Karma Gonzalez MD [facility]'s [facility] Specialt [facility] 2025-01-21 13:17:28 Nurse called and spoke to patient about lab results. Pt verbalized understanding and has no further questions at this time. Please notify the patient she is anemic iron/vitamin c combo have been sent to her pharmacy on file. She should continue taking her pnv. SENAIT Parra 01/21/2025 10:10 AM [facility] 2025-01-21 10:26:08 Attempted to call patient, no answer, left vm. [facility] 2025-01-21 10:10:42 Please notify the patient she is anemic iron/vitamin c combo have been sent to her pharmacy on file. She should continue taking her pnv. SENAIT Parra 01/21/2025 10:10 AM T [facility]
[2025-04-11] MEDS ORDERED: NA CHLORIDE 0.9% 1,000 ML ONE (23:13)
--- NOTE | 2025-04-11 23:19 | ER ---
Nurse's Notes [facility] Name: Glenda Man Age: 20 yrs Sex: Female : 2005 Arrival Date: 04/11/2025 Time: 22:59 Bed 1 Private MD: Diagnosis: 38 weeks gestation of -EARLY LABOR;Abdominal tenderness Presentation: 04/11 23:07 Chief complaint: Patient states: lower abdominal cramping since 8pm. Coronavirus lg3 screen: Client denies travel out of the [place] in the last 14 days. At this time, the client does not indicate any symptoms associated with coronavirus-19. Ebola Screen: No symptoms or risks identified at this time. Risk Assessment: Do you want to hurt yourself or someone else? Patient reports no desire to harm self or others. Onset of symptoms was April 11, 2025. 23:07 Method Of Arrival: Wheelchair lg3 23:07 Acuity: VEE 3 lg3 04/12 00:15 Initial Sepsis Screen: Does the patient meet any 2 criteria? No. Patient's initial al5 sepsis screen is negative. Does the patient have a suspected source of infection? No. Patient's initial sepsis screen is negative. Triage Assessment: 04/11 23:08 General: Appears in no apparent distress. comfortable, Behavior is calm, cooperative. lg3 Pain: Complains of pain in pelvis Pain does not radiate. Pain currently is 5 out of 10 on a pain scale. Quality of pain is described as crampy. EENT: No deficits noted. No signs and/or symptoms were reported regarding the EENT system. Neuro: No deficits noted. Kumar Agitation-Sedation Scale (RASS): 0 - Alert and Calm Level of Consciousness is awake, alert, obeys commands, Oriented to person, place, time, situation. Cardiovascular: No deficits noted. Denies chest pain, shortness of breath, Capillary refill < 3 seconds Clubbing of nail beds is absent JVD is absent Patient's skin is warm and dry. Respiratory: No deficits noted. Airway is patent Respiratory effort is even, unlabored, Respiratory pattern is regular, symmetrical, Breath sounds are clear bilaterally. GI: Abdomen is round non-distended, Reports lower abdominal pain, cramping. : No signs and/or symptoms were reported regarding the genitourinary system. Derm: No deficits noted. No signs and/or symptoms reported regarding the dermatologic system. Skin is intact, is healthy with good turgor, Skin is dry, Skin is normal, Skin temperature is warm. Musculoskeletal: No deficits noted. Circulation, motion, and sensation intact. Range of motion: intact in all extremities. HYDRAULIC RIVETER: 23:08 1, Living 0, unknown, unknown LMP lg3 Historical: - Allergies: 23:08 No Known Allergies; lg3 - Home Meds: 23:08 Vitamin Oral [Active]; Iron CR Oral [Active]; lg3 - PMHx: 23:08 None; lg3 - PSHx: 23:08 None; lg3 - Immunization history:: Adult Immunizations up to date. - Infectious Disease History:: Denies. - Social history:: Smoking status: Patient denies any tobacco usage or history of. Patient/guardian denies using alcohol, street drugs. Screenin:35 [facility] ED Fall Risk Assessment (Adult) History of falling in the last 3 months, al5 including since admission No falls in past 3 months (0 pts) Confusion or Disorientation No (0 pts) Intoxicated or Sedated No (0 pts) Impaired Gait No (0 pts) Mobility Assist Device Used No (0 pt) Altered Elimination No (0 pt) Score/Fall Risk Level 0 - 2 = Low Risk Oriented to surroundings, Maintained a safe environment, Hourly rounding (assess needs \T\ fall precautionary measures) done. Abuse screen: Denies threats or abuse. Denies injuries from another. Nutritional screening: No deficits noted. Tuberculosis screening: No symptoms or risk factors identified. Assessment: 23:07 General: see triage assessment. lg3 04/12 00:00 Reassessment: gave report to fernando gusman at [facility]. al5 00:15 Reassessment: gave report to EMS. al5 Vital Signs: 04/11 23:16 BP 138 / 82; Pulse 97; Resp 17 S; Temp 98.1(O); Pulse Ox 100% on R/A; Weight 102.06 kg; lg3 Height 5 ft. 2 in. ; 04/12 00:08 BP 115 / 74; Pulse 94; Resp 16; Pulse Ox 100% on R/A; al5 04/11 23:16 Body Mass Index 41.15 (102.06 kg, 157.48 cm) lg3 Vitals: 04/11 23:19 Heart Tones 174. vc1 ED Course: 23:00 Patient arrived in ED. im 23:03 Madhuri Sherwood FNP-C [facility]. kb 23:03 Wilson Pond MD is Attending Physician. kb 23:08 Wilson Pond MD is Attending Physician. lyle 23:08 Triage completed. lg3 23:08 Arm band placed on right wrist. lg3 23:15 Initiated transfer with Oksana at [facility]. rv1 23:34 Erlinda Martinez, RN is Primary Nurse. al5 23:35 Patient has correct armband on for positive identification. Bed in low position. Call al5 light in reach. Side rails up X2. Provided Education on: need for transfer. 23:35 No provider procedures requiring assistance completed. Inserted saline lock: 20 gauge al5 in right antecubital area, using aseptic technique. Blood collected. Flushed with 10 mL NS. 23:[address] Gonzalez to [facility] [place] L\T\D Triage. rv1 04/12 00:05 [facility] to transfer. rv1 00:16 Patient transferred, IV remains in place. al5 Administered Medications: 04/11 23:35 Drug: NS 0.9% IV 1000 ml IV at 1000 ml once; to be given as a bolus over 60 minutes al5 Route: IV; Rate: 1000 ml; Site: right antecubital; 04/12 00:16 Follow up: Response: No adverse reaction; IV Status: Infusion continued upon transfer al5 Medication: 04/11 23:36 VIS not applicable for this client. al5 Outcome: 23:19 ER care complete, transfer ordered by . [facility] 04/12 00:16 Transferred by [facility]. to [facility], al5 Condition: stable Instructed on the need for transfer, 00:16 Patient left the ED. al5 Signatures: Madhuri Sherwood FNP-C FNP-Ckb Anderson, Corey, MD MD cha Able, Lacie, RN RN lg3 Ellen Churchill RN RN vc1 Edwige Pisano rv1 Celsa Hawley Erlinda Martinez RN RN al5 Corrections: (The following items were deleted from the chart) 04/11 23:37 23:37 General: see triage assessment. lg3 lg3 04/12 00:05 04/11 23:53 [facility] to transfer rv1 rv1
--- NOTE | 2025-04-11 23:20 | EDPHYS ---
Physician Documentation [facility] Name: Glenda Man Age: 20 yrs Sex: Female : 2005 Arrival Date: 04/11/2025 Time: 22:59 Bed 1 Private MD: ED Physician Wilson Pond HPI: 04/11 23:13 This 20 yrs old Female presents to ER via Wheelchair with complaints of 38 lyle weeks , Pelvic Pain, Abdominal Pain, Low Back Pain. 23:13 The patient presents with pain that is acute, with no known mechanism of injury. The lyle symptoms are located in the PREG AT 38 WEEKS. The pain does not radiate. 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 - Infectious Disease History:: Denies. - Social history:: Smoking status: Patient denies any tobacco usage or history of. Patient/guardian denies using alcohol, street drugs. ROS: 23:15 Constitutional: Negative for fever, chills, and weight loss, Eyes: Negative for injury, lyle pain, redness, and discharge, ENT: Negative for injury, pain, and discharge, Neck: Negative for injury, pain, and swelling, Cardiovascular: Negative for chest pain, palpitations, and edema, Respiratory: Negative for shortness of breath, cough, wheezing, and pleuritic chest pain, Back: Negative for injury and pain, MS/Extremity: Negative for injury and deformity, Skin: Negative for injury, rash, and discoloration, Neuro: Negative for headache, weakness, numbness, tingling, and seizure, Psych: Negative for depression, anxiety, suicide ideation, homicidal ideation, and hallucinations, Allergy/Immunology: Negative for hives, rash, and allergies, Endocrine: Negative for neck swelling, polydipsia, polyuria, polyphagia, and marked weight changes, Hematologic/Lymphatic: Negative for swollen nodes, abnormal bleeding, and unusual bruising, 23:15 Abdomen/GI: Positive for abdominal cramps, abdominal distension, Exam: 23:15 Constitutional: This is a well developed, well nourished patient who is awake, alert, lyle and in no acute distress. Head/Face: Normocephalic, atraumatic. Eyes: Pupils equal round and reactive to light, extra-ocular motions intact. Lids and lashes normal. Conjunctiva and sclera are non-icteric and not injected. Cornea within normal limits. Periorbital areas with no swelling, redness, or edema. ENT: Nares patent. No nasal discharge, no septal abnormalities noted. Tympanic membranes are normal and external auditory canals are clear. Oropharynx with no redness, swelling, or masses, exudates, or evidence of obstruction, uvula midline. Mucous membranes moist. Neck: Trachea midline, no thyromegaly or masses palpated, and no cervical lymphadenopathy. Supple, full range of motion without nuchal rigidity, or vertebral point tenderness. No Meningismus. Chest/axilla: Normal chest wall appearance and motion. Nontender with no deformity. No lesions are appreciated. Cardiovascular: Regular rate and rhythm with a normal S1 and S2. No gallops, murmurs, or rubs. Normal PMI, no JVD. No pulse deficits. Respiratory: Lungs have equal breath sounds bilaterally, clear to auscultation and percussion. No rales, rhonchi or wheezes noted. No increased work of breathing, no retractions or nasal flaring. Back: No spinal tenderness. No costovertebral tenderness. Full range of motion. Female : Normal external genitalia. Skin: Warm, dry with normal turgor. Normal color with no rashes, no lesions, and no evidence of cellulitis. MS/ Extremity: Pulses equal, no cyanosis. Neurovascular intact. Full, normal range of motion., bilateral aka Neuro: Awake and alert, GCS 15, oriented to person, place, time, and situation. Cranial nerves II-XII grossly intact. Motor strength 5/5 in all extremities. Sensory grossly intact. Cerebellar exam normal. Normal gait. Psych: Awake, alert, with orientation to person, place and time. Behavior, mood, and affect are within normal limits. 23:15 Abdomen/GI: Inspection: abdomen appears normal, Bowel sounds: normal, Palpation: nontender, Liver: no appreciated palpable abnormalities, Hernia: not appreciated, 23:21 : CVA tenderness, is absent, Pelvic Exam: External exam: is normal, Speculum exam: no lyle bleeding is noted, no cervicitis, os that is closed, Gravid exam: Fundal height: consistent with gestational age, Cervical size: the cervix is not dilated, Effacement: the is no cervical effacement, Bladder: is normal, Sexual behavior: the patient is sexually active, and reports a single partner, Vital Signs: 23:16 BP 138 / 82; Pulse 97; Resp 17 S; Temp 98.1(O); Pulse Ox 100% on R/A; Weight 102.06 kg; lg3 Height 5 ft. 2 in. ; 04/12 00:08 BP 115 / 74; Pulse 94; Resp 16; Pulse Ox 100% on R/A; al5 04/11 23:16 Body Mass Index 41.15 (102.06 kg, 157.48 cm) lg3 MDM: 04/11 23:03 Medical Screening Exam initiated kb 23:17 Differential diagnosis: [place], delivery of infant, non-specific abd pain. Data [facility] reviewed: vital signs, nurses notes, lab test result(s), radiologic studies, ultrasound. Consideration of Admission/Observation Escalation of care including admission/observation considered. I considered the following discharge prescriptions or medication management in the emergency department Medications were administered in the Emergency Department. See MAR. Independent interpretation of the following test(s) in the Emergency Department Radiology Department Ultrasound: My interpretation is USG PREG. Test considered but Not performed: MRI: NO MRI PELVIS. Care significantly affected by the following chronic conditions: NONE. 04/11 23:09 Order name: Abo/rh Typing [facility] 04/11 23:09 Order name: Basic Metabolic Panel [facility] 04/11 23:09 Order name: CBC with Diff [facility] 04/11 23:09 Order name: Test, Urine [facility] 04/11 23: Order name: UA Rfx Lavon Cult if indicated [facility] 04/11 23: Order name: IV Saline Lock; Complete Time: 23:35 [facility] 04/11 23:09 Order name: Labs collected and sent; Complete Time: 23:35 [facility] 04/11 23:09 Order name: NPO; Complete Time: 23:35 [facility] 04/11 23:09 Order name: Pelvic Exam Setup; Complete Time: 23:35 [facility] 04/11 23:09 Order name: FHT's; Complete Time: 23:35 lyle 04/11 23:20 Order name: Oxygen: 2 LITERS; Complete Time: 23:35 lyle 04/11 23:20 Order name: Misc. Order: LLD; Complete Time: 23:35 lyle Administered Medications: 23:35 Drug: NS 0.9% IV 1000 ml IV at 1000 ml once; to be given as a bolus over 60 minutes al5 Route: IV; Rate: 1000 ml; Site: right antecubital; 04/12 00:16 Follow up: Response: No adverse reaction; IV Status: Infusion continued upon transfer al5 Disposition Summary: 04/11/25 23:19 Transfer Ordered Notes: Transfer Location: [facility] Reason: Higher level of care lyle Condition: Stable lyle Problem: new lyle Symptoms: are unchanged lyle Accepting Physician: TO [facility](04/12/25 00:16) al5 Diagnosis - 38 weeks gestation of - EARLY LABOR lyle - Abdominal tenderness lyle Forms: - Medication Reconciliation Form lyle - SBAR form lyle Signatures: Dispatcher [employer] EDMadhuri Blanca, GARMENT TURNER-C GARMENT TURNER-Ckb Wilson Pond MD MD cha Able, Lacie RN RN lg3 Erlinda Martinez RN RN al5 Corrections: (The following items were deleted from the chart) 04/11 23:10 23:09 ABO/RH TYPING+BB.LAB.BRZ ordered. EDMS EDMS 23:10 23:09 BASIC METABOLIC PANEL+C.LAB.BRZ ordered. EDMS EDMS 23:10 23:09 CBC+H.LAB.BRZ ordered. EDMS EDMS 23:10 23:09 Test, Urine+UC.LAB.BRZ ordered. EDMS EDMS 23:10 23:09 UA Rfx Lavon Cult if indicated+U.LAB.BRZ ordered. EDMS EDMS 04/12 00:16 04/11 23:19 TO [facility] al5
[2025-04-12 00:21] LABS: Absolute Lymphocytes (CBC) 2.3 K/uL (0.7-4.9); Hematocrit 33.2 % (36.0-45.0); Hemoglobin 11.1 g/dL (12.0-15.0); MCH 29.0 pg (27.0-35.0); MCHC 33.4 g/dL (32.0-36.0); MCV 86.8 fL (80-100); MPV 9.6 fL (7.6-11.3); Nucleated RBC Absolute Count 0.0 (0-0); Nucleated Red Blood Cells % 0.0 % (0-0); RBC Red Blood Cell Count 3.83 M/uL (3.86-4.86); White Blood Count 12.10 thou/uL (4.3-10.9)
[2025-04-12 00:29] LABS: Urine Culture Reflex Order REFLEXED; Urine Microscopic Reflex YN ORDER UMIC
[2025-04-12 00:46] LABS: Anion Gap 13.5 mEq/L (5.0-15.0); BUN Blood Urea Nitrogen 9.0 mg/dL (7-18); Glucose Level 97.0 mg/dL (74-106); Potassium 3.5 mEq/L (3.5-5.1)
[2025-04-12 01:22] VITALS: TEMP 98.1; O2SAT 100
[2025-04-12 01:24] VITALS: BP 115/74
== END 2025-04-12 00:16 | disposition short-term general hospital (02) ==
LOC: ER 22:59
DX: O60.03 Preterm labor without delivery, third trimester (principal); Z3A.38 38 weeks gestation of pregnancy
CPT/HCPCS: 87088; 85025; 81001; 87086; 80048; 36415; 86900; 81025; 86901; 96360; 99285; J7030